=== PATIENT | female | born 1970 | race Caucasian/White ===

== ENCOUNTER 2025-01-16 17:39 | Emergency (ER) | payer OTHER ==
--- NOTE | 2025-01-16 17:48 | ERPHSYRPT ---
- History of Present Illness Time Seen by Provider: 01/16/25 17:48 Source: patient, family Exam Limitations: no limitations Physician History: This is an obese 54-year-old white female patient arrives by private vehicle with the complaint of headache for 3 days and associated blood pressure. She had high blood pressure readings a couple of days ago. Her headache was worse today and she had some visual changes which have resolved. Her systolic blood pressure readings at home were 170s to 180s millimeters of mercury. Her first systolic blood pressure reading here in the emergency department is 188 mmHg. Patient denies chest pain. Patient denies shortness of breath. Patient ambulated to the emergency department room without difficulty. Patient describes her headache pain as generalized achiness. She denies head trauma. She is on blood pressure medication. She takes losartan for treatment of high blood pressure. In addition, the patient has a history of anxiety, arthritis and insulin-dependent diabetes. Timing/Duration: day(s) (3), worse Quality: aching Head Pain Location: global Recent Head Trauma: no recent headache/trauma Associated Symptoms: vision changes, other (Couple of days ago she felt as though she was in a "fog"), No dizziness, No light-headedness, No loss of consciousness, No sensitive to light Previous symptoms: no prior history, no recent treatment Allergies/Adverse Reactions: No Known Drug Allergies Allergy (Unverified 01/16/25 18:13) Home Medications: ALPRAZolam 1 MG [Xanax 1 mg] 1 mg PO BID 01/16/25 [History] Adalimumab [Humira(Cf) Pen] 40 mg SQ UD 01/16/25 [History] Celecoxib 100 mg [celeBREX 100 MG] 100 mg PO TID 01/16/25 [History] Insulin Glargine [Lantus Insulin] 20 units SQ DAILY 01/16/25 [History] Insulin Lispro [Humalog Kwikpen U-100] See Rx Instructions .ROUTE .COMPLEX 01/16/25 [History] Losartan Potassium 50 mg [Cozaar 50 MG] 50 mg PO DAILY 01/16/25 [History] Oxycodone / APAP 10/325 mg [Oxycodone-Acetaminophen 10-325] 1 tab PO BID 01/16/25 [History] Travel Risk - International Travel Have you traveled outside of the country in past 3 weeks: No - Emerging Infectious Disease Are you exhibiting symptoms associated with any current EIDs: No - Review of Systems Constitutional: No Symptoms Eyes: No Symptoms Ears, Nose, & Throat: No Symptoms Respiratory: No Symptoms Cardiac: No Symptoms Abdominal/Gastrointestinal: No Symptoms Genitourinary Symptoms: No Symptoms Musculoskeletal: No Symptoms Skin: No Symptoms Neurological: Headache Psychological: No Symptoms Endocrine: No Symptoms Hematologic/Lymphatic: No Symptoms Immunological/Allergic: No Symptoms All Other Systems: Reviewed and Negative - Past Medical History Pertinent Past Medical History: Yes - Nursing Vital Signs Nursing Vital Signs: Initial Vital Signs Temperature 97 F 01/16/25 17:39 Pulse Rate 85 01/16/25 17:39 Respiratory Rate 20 01/16/25 17:39 Blood Pressure 188/131 01/16/25 17:39 O2 Sat by Pulse Oximetry 96 01/16/25 17:39 Pain Scale Pain Intensity 10 - Physical Exam General Appearance: mild distress, alert, anxiety, obese Eye Exam: PERRL/EOMI, eyes nml inspection Ears, Nose, Throat Exam: normal ENT inspection, moist mucous membranes Neck Exam: normal inspection, non-tender, supple, full range of motion Respiratory Exam: normal breath sounds, lungs clear, airway intact, No chest tenderness, No respiratory distress Cardiovascular Exam: regular rate/rhythm, normal heart sounds, normal peripheral pulses Gastrointestinal/Abdominal Exam: soft, normal bowel sounds, No tenderness Back Exam: normal inspection, normal range of motion, No CVA tenderness, No vertebral tenderness Extremity Exam: normal inspection, normal range of motion, pelvis stable Mental Status Exam: alert, oriented x 3, 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 There is no evidence of acute ischemia on this twelve-lead EKG.) Ordered Tests: Active Orders 24 hr Category Date Time Status Landscape Technician STAT Care 01/16/25 18:34 Completed EKG-ER Only STAT Care 01/16/25 18:33 Active IV Insertion STAT Care 01/16/25 18:33 Active NPO (ED) STAT Care 01/16/25 18:34 Active Pulse Oximetry (ED) STAT Care 01/16/25 18:33 Completed HEAD WITHOUT CONTRAST [CT] Stat Exams 01/16/25 18:34 Taken CBC W DIFF Stat Lab 01/16/25 18:30 Completed CMP Stat Lab 01/16/25 18:30 Completed PROTIME WITH INR Stat Lab 01/16/25 18:30 Completed PTT Stat Lab 01/16/25 18:30 Completed UA W/RFX UR CULTURE Stat Lab 01/16/25 17:39 Completed Medication Summary Discontinued Medications Generic Name Dose Route Start Last Admin Trade Name Freq PRN Reason Stop Dose Admin Labetalol HCl 10 mg 01/16/25 18:35 01/16/25 18:54 Labetalol Hcl 20 Mg/4 Ml Disp.Syringe IV 01/16/25 18:36 10 mg STAT ONE Administration Labetalol HCl Confirm 01/16/25 18:41 Labetalol Hcl 20 Mg/4 Ml Disp.Syringe Administered 01/16/25 18:42 Dose 20 mg IV .STK-MED ONE Labetalol HCl 10 mg 01/16/25 19:30 Labetalol Hcl 20 Mg/4 Ml Disp.Syringe IV 01/16/25 19:31 STAT ONE Lorazepam 1 mg 01/16/25 19:30 Lorazepam 2 Mg/1 Ml 2 Mg Vial IV 01/16/25 19:31 STAT ONE Lab/Rad Data: Laboratory Result Diagrams 01/16/25 18:30 01/16/25 18:30 Laboratory Results 01/16/25 01/16/25 01/16/25 Range/Units 18:30 18:30 18:30 WBC 8.1 (3.98-10.04) x10^3/uL RBC 5.28 H (3.93-5.22) x10^6/uL Hgb 15.5 (11.2-15.7) g/dL Hct 46.2 H (34.1-44.9) % MCV 87.5 (79.4-94.8) fL MCH 29.4 (25.6-32.2) pg MCHC 33.5 (32.2-35.5) g/dL RDW 11.9 (11.7-14.4) % Plt Count 265 (182-369) x10^3/uL MPV 10.6 (9.4-12.3) fL Gran % 40.9 (34.0-71.1) % Immature Gran % (Auto) 0.2 (0.001-0.429) % Nucleat RBC Rel Count 0.0 (0.00-0.2) % Eos # (Auto) 0.09 (0.04-0.36) x10^3/uL Immature Gran # (Auto) 0.02 (0.001-0.031) x10^3u/L Absolute Lymphs (auto) 4.10 H (1.18-3.74) x10^3/uL Absolute Monos (auto) 0.52 (0.24-0.86) x10^3/uL Absolute Nucleated RBC 0.00 (0.00-0.012) x10^3u/L Lymphocytes % 50.9 (19.3-51.7) % Monocytes % 6.5 (4.7-12.5) % Eosinophils % 1.1 (0.7-5.8) % Basophils % 0.4 (0.1-1.2) % Absolute Granulocytes 3.30 (1.56-6.13) x10^3/uL Basophils # 0.03 (0.01-0.08) x10^3/uL PT 10.6 (9.4-12.5) SECONDS INR 0.94 (0.8-3.0) APTT 24.5 L (25.1-36.5) SECONDS Sodium 141 (135-145) mmol/L Potassium 3.6 (3.5-5.1) mmol/L Chloride 103 (98-107) mmol/L Carbon Dioxide 28 (22-30) mmol/L Anion Gap 14.1 (5-15) MEQ/L BUN 13 (7-17) mg/dL Creatinine 0.82 (0.52-1.04) mg/dL Estimated GFR 84.4 ML/MIN Glucose 119 H (74-106) mg/dL Calcium 10.0 (8.4-10.2) mg/dL Total Bilirubin 0.30 (0.2-1.3) mg/dL AST 31 (14-36) U/L ALT 23 (0-35) U/L Alkaline Phosphatase 101 (38-126) U/L Serum Total Protein 8.4 H (6.3-8.2) g/dL Albumin 4.6 (3.5-5.0) g/dL Urine Color (Yellow) Urine Appearance (Clear) Urine pH (4.6-8.0) Ur Specific [place] (1.005-1.030) Urine Protein (Negative) Urine Glucose (UA) (Negative) mg/dL Urine Ketones (Negative) Urine Blood (Negative) Urine Nitrite (Negative) Urine Bilirubin (Negative) Urine Urobilinogen (0.2) mg/dL Ur Leukocyte Esterase (Negative) U Hyaline Cast (Auto) (0-2) /LPF Urine Microscopic RBC (0-5) /HPF Urine Microscopic WBC (0-5) /HPF Ur Epithelial Cells (None Seen) /HPF Urine Bacteria (None Seen) /HPF Urine Culture Reflexed (NO) 01/16/25 Range/Units 17:39 WBC (3.98-10.04) x10^3/uL RBC (3.93-5.22) x10^6/uL Hgb (11.2-15.7) g/dL Hct (34.1-44.9) % MCV (79.4-94.8) fL MCH (25.6-32.2) pg MCHC (32.2-35.5) g/dL RDW (11.7-14.4) % Plt Count (182-369) x10^3/uL MPV (9.4-12.3) fL Gran % (34.0-71.1) % Immature Gran % (Auto) (0.001-0.429) % Nucleat RBC Rel Count (0.00-0.2) % Eos # (Auto) (0.04-0.36) x10^3/uL Immature Gran # (Auto) (0.001-0.031) x10^3u/L Absolute Lymphs (auto) (1.18-3.74) x10^3/uL Absolute Monos (auto) (0.24-0.86) x10^3/uL Absolute Nucleated RBC (0.00-0.012) x10^3u/L Lymphocytes % (19.3-51.7) % Monocytes % (4.7-12.5) % Eosinophils % (0.7-5.8) % Basophils % (0.1-1.2) % Absolute Granulocytes (1.56-6.13) x10^3/uL Basophils # (0.01-0.08) x10^3/uL PT (9.4-12.5) SECONDS INR (0.8-3.0) APTT (25.1-36.5) SECONDS Sodium (135-145) mmol/L Potassium (3.5-5.1) mmol/L Chloride (98-107) mmol/L Carbon Dioxide (22-30) mmol/L Anion Gap (5-15) MEQ/L BUN (7-17) mg/dL Creatinine (0.52-1.04) mg/dL Estimated GFR ML/MIN Glucose (74-106) mg/dL Calcium (8.4-10.2) mg/dL Total Bilirubin (0.2-1.3) mg/dL AST (14-36) U/L ALT (0-35) U/L Alkaline Phosphatase (38-126) U/L Serum Total Protein (6.3-8.2) g/dL Albumin (3.5-5.0) g/dL Urine Color Yellow (Yellow) Urine Appearance Clear (Clear) Urine pH 6.0 (4.6-8.0) Ur Specific [place] 1.010 (1.005-1.030) Urine Protein Negative (Negative) Urine Glucose (UA) Negative (Negative) mg/dL Urine Ketones Negative (Negative) Urine Blood Negative (Negative) Urine Nitrite Negative (Negative) Urine Bilirubin Negative (Negative) Urine Urobilinogen 0.2 (0.2) mg/dL Ur Leukocyte Esterase Negative (Negative) U Hyaline Cast (Auto) NONE SEEN (0-2) /LPF Urine Microscopic RBC 0-2 (0-5) /HPF Urine Microscopic WBC 0-2 (0-5) /HPF Ur Epithelial Cells None Seen (None Seen) /HPF Urine Bacteria None Seen (None Seen) /HPF Urine Culture Reflexed NO (NO) - Progress Progress: improved, re-examined Air Movement: good Progress Note: 01/16/25 18:42 My medical decision making and the assignment of at least moderate complexity to this patient's medical issue today is based on review of the patient's past medical history, reviewed the patient's medication list, reviewed patient drug allergy list, history of present illness and physical findings on examination. The workup in this patient includes placement of intravenous line, twelve-lead EKG, urinalysis, CBC, CMP, PT/INR/PTT, CT scan of the head without contrast, provide the patient with labetalol 10 mg intravenously. Differential diagnosis includes but is not limited to hypertensive urgency, poorly controlled hypertension, acute intracranial abnormality, urinary tract infection, dehydration 01/16/25 19:45 Headache has improved. Patient's blood pressure is now 143/100. I interpreted the patient's laboratory data results. Based on the laboratory data results there are no acute, emergent medical issues. CT scan of the head without contrast was interpreted by the radiologist and I reviewed the impression. Impression states stable 1.3 cm round right vertex calcified meningioma. Otherwise normal head CT without contrast Blood Culture(s) Obtained: No Antibiotics given: No Counseled pt/family regarding: lab results, diagnosis, need for follow-up, rad results Medical Desision Making - Diagnostic Testing Diagnostic test were ordered, analyzed, and reviewed by me: Yes Radiological Interpretation: Reviewed by me, Teleradiologist Report - Risk of complications Low Risk: Low risk of morbidity from additional dx testing or treatment - Departure Departure Disposition: Home Clinical Impression: Calcified cerebral meningioma, Hypertension, Headache Condition: Stable Critical Care Time: No Referrals: DOCTOR,NO FAMILY [Primary Care Provider, UNKNOWN] - Follow up/PCP as directed Additional Instructions: Take your medications as prescribed. Call your primary care provider tomorrow, 01/17/2025, to make arrangements for follow-up appointment for further evaluation and management of your headaches and high blood pressure.
[2025-01-16 18:31] VITALS: TEMP 97
[2025-01-16 18:41] LABS: BASOPHIL % 0.4 % (0.1-1.2); Basophil (Absolute #) 0.03 x10^3/uL (0.01-0.08); Eosinophil (Absolute #) 0.09 x10^3/uL (0.04-0.36); Hematocrit 46.2 % (34.1-44.9); Hemoglobin 15.5 g/dL (11.2-15.7); IMMATURE GRAN # 0.02 x10^3u/L (0.001-0.031); IMMATURE GRAN % 0.2 % (0.001-0.429); Lymphocyte (Absolute #) 4.10 x10^3/uL (1.18-3.74); Mean Corpuscular Hemoglobin 29.4 pg (25.6-32.2); Mean Corpuscular Hgb Concent. 33.5 g/dL (32.2-35.5); Monocyte (Absolute #) 0.52 x10^3/uL (0.24-0.86); NUCLEATED RBC # 0.00 x10^3u/L (0.00-0.012); NUCLEATED RBC % 0.0 % (0.00-0.2); Platelet Count 265 x10^3/uL (182-369); Red Blood Count 5.28 x10^6/uL (3.93-5.22); White Blood Count 8.1 x10^3/uL (3.98-10.04)
[2025-01-16] MEDS ORDERED: TRANDATE 20 MG/4 ML SYRINGE IV ONE (18:41)
[2025-01-16 18:51] LABS: Glucose, Urine Negative (Negative); Protein,Urine Dip Negative (Negative); RBC 0-2 /HPF (0-5); WBC 0-2 /HPF (0-5)
[2025-01-16 18:54] LABS: Calcium 10.0 mg/dL (8.4-10.2); Carbon Dioxide 28.0 mmol/L (22-30); Creatinine 1 0.82 mg/dL (0.52-1.04); EST GLOMERULAR FILTRATION RATE 84.4 ML/MIN; Glucose 119.0 mg/dL (74-106); Potassium 3.6 mmol/L (3.5-5.1); SGOT/AST 31.0 U/L (14-36); SGPT/ALT 23.0 U/L (0-35); Total Protein 8.4 g/dL (6.3-8.2)
[2025-01-16] MEDS: TRANDATE 20 MG/4 ML SYRINGE IV ONE ×2 (18:54→19:56)
[2025-01-16 18:57] LABS: INR 0.94 (0.8-3.0); PROTIME 10.6 SECONDS (9.4-12.5); PTT 24.5 SECONDS (25.1-36.5)
[2025-01-16] MEDS ORDERED: ATIVAN 2 MG/ML MDV FOR SINGLE DOSES ONE (19:46)
[2025-01-16] MEDS: Ativan 2 MG/1 ML VIAL IV ONE (19:50)
[2025-01-16 20:05] VITALS: BP 135/82; PULSE 81; RESP 18; O2SAT 93
--- NOTE | 2025-01-16 22:10 | XRAY ---
Indication: Hypertension. Visual changes. Multiple contiguous axial images obtained through the head without contrast. Comparison: September 03, 2019 Ventriclosulcal pattern appears symmetric. Posterior right vertex again demonstrates 1.4 x 1.3 cm parafalcine calcified meningioma. No acute intracranial hemorrhage, abnormal extra-axial fluid collection, or mass effect. Fourth ventricle is midline without hydrocephalus. Moraes-white matter differentiation is preserved. Bony calvarium intact. Visualized paranasal sinuses and mastoid air cells are clear. Impression: Stable small right parafalcine calcified meningioma. Remaining CT head without contrast exam is negative.
== END 2025-01-16 20:16 | disposition home or self-care (01) ==
LOC: ED 17:39
DX: D32.0 Benign neoplasm of cerebral meninges (principal); I10 Essential (primary) hypertension; R51.9 Headache, unspecified; E11.9 Type 2 diabetes mellitus without complications; Z79.4 Long term (current) use of insulin; Z79.891 Long term (current) use of opiate analgesic; Z79.899 Other long term (current) drug therapy